=== PATIENT | female | born 1990 | race Two or more races ===

== ENCOUNTER 2024-03-20 05:58 | Emergency (ER) | payer MEDICAID, SELFPAY ==
[2024-03-20 05:59] VITALS: BMI 32.0
[2024-03-20 06:03] VITALS: BP 161/96; PULSE 84; RESP 19; TEMP 36.7; O2SAT 98
--- NOTE | 2024-03-20 06:17 | XR_ITS ---
Examination: CT middle inner ear, without contrast. 2-D coronal reconstructions. 2-D sagittal reconstructions. Date and time of exam: March 20, 2024 at 0709 hrs. Indications: Onset left urinary beginning 2 days ago CTDI: vol (mGy): 6 DLP: (mGycm):224 Technique: Multiple 1.0 mm axial sections of the middle inner ears bilaterally. High-resolution 64 slice scanner utilized. 2-D coronal reconstructions 2-D sagittal reconstructions Low dose protocols were performed. One or more of the following dose reduction techniques were used; automated exposure control, adjustment of the mA and/or KV according to patient size, use of iterative reconstruction technique. Findings: Axial sections of the right demonstrate mildly to moderately reduced mastoid aeration. Jugular fossa and carotid canal do not appear remarkable. No deformity of the ossicles. Porus acusticus internus does not exhibit erosion. Cochlear apparatus unremarkable. Semicircular canals normal. External auditory canal open. Coronal reconstructions demonstrate no erosion of the scutum. No soft tissue mass in the attic or Prussak's space is seen. Ossicular mass intact. Axial sections of the left demonstrate moderately reduced mastoid aeration. Fluid in the left mastoid air cells acute mastoiditis Jugular fossa and carotid canal do not appear remarkable. No deformity of the ossicles. Porus acusticus internus does not exhibit erosion. Cochlear apparatus unremarkable. Semicircular canals normal. Otitis externa Otitis media Coronal reconstructions demonstrate no erosion of the scutum. No soft tissue mass in the attic or Prussak's space is seen. Ossicular mass intact. Roof of the mastoid air cells appear intact bilaterally. Impression: Bilateral chronic mastoiditis Acute left mastoiditis Left otitis externa Left otitis media Negative for cholecystitis
--- NOTE | 2024-03-20 06:19 | PD.EDRME ---
Rapid Medical Screening Exam RME Arrival date/time: 03/20/24 05:58 Chief Complaint: Ear Time Seen by Provider: 03/20/24 06:12 Vital signs: Vital Signs Temperature 98.1 F 03/20/24 06:03 Pulse Rate 84 03/20/24 06:03 Respiratory Rate 19 03/20/24 06:03 Blood Pressure 161/96 H 03/20/24 06:03 Pulse Oximetry (%) 98 03/20/24 06:03 Oxygen Delivery Method Room Air 03/20/24 06:03 Vital signs reviewed by provider: Yes RME Narrative: 33 yo F presents for evaluation of worsening L ear pain x3 days. Endorses fever, chills, and otorrhea. Endorses throat pain.
[2024-03-20 06:38] LABS: Basophils % (Auto) 0 % (0-2.5); Eosinophils # (Auto) 0.2 Thou/mm3 (0.0-0.5); Eosinophils % (Auto) 2 % (0-10); Hematocrit 43.7 % (36.0-46.0); Hemoglobin 14.7 g/dL (12.0-16.0); Immature Granulocytes % (Auto) 0 % (0-0); Immature Granulocytes Auto 0.06 Thou/mm3 (0.00-0.00); Lymphocytes # (Auto) 2.3 Thou/mm3 (1.0-4.8); Lymphocytes % (Auto) 15 % (10-50); Mean Corpuscular HGB Conc 33.6 g/dl (31.0-37.0); Mean Corpuscular Hemoglobin 31.3 pg (25.0-35.0); Mean Corpuscular Volume 93 fL (80-100); Monocytes % (Auto) 7 % (0-12); Neutrophils # (Auto) 11.3 Thou/mm3 (1.8-7.7); Neutrophils % (Auto) 76 % (37-80); Nucleated Red Blood Cell % 0 /100 WBC (0); Platelet Count 244 Thou/mm3 (140-440); RDW Standard Deviation 42.4 fL (36.4-46.3); Red Blood Count 4.69 Miln/mm3 (4.00-5.20)
[2024-03-20] MEDS: KETOROLAC INJ 60 MG/2 ML VIAL 30 MG IM (06:47)
[2024-03-20 07:08] LABS: C-Reactive Protein 3.1 mg/dL (0.0-0.9)
[2024-03-20 07:29] LABS: HCG Qualitative,Urine Negative
--- NOTE | 2024-03-20 08:06 | PD.EDEAR ---
ED Ear RME/HPI General Chief complaint: Ear Stated complaint: LEFT EARACHE X 2DAYS Time Seen by Provider: 03/20/24 06:12 Arrival date/time: 03/20/24 05:58 Limitations: language barrier RME / HPI RME / HPI Narrative: 33 yo F presents for evaluation of worsening L ear pain x3 days. Endorses fever, chills, and otorrhea (clear). Endorses throat pain. Denies history of recurrent ear infections and recent antibiotic use. Denies chest pain, headache, neck pain, dental pain, night sweats. Patient works in the [employer] MD Complaint: ear pain Location: left ear Duration: constant Relieving factors: nothing Treatment prior to arrival: none Related Data Previous Rx's ?Medication ?Instructions ?Recorded amoxicillin 500 mg-potassium 1 tab PO BID ear infection 2 03/20/24 clavulanate 125 mg tablet weeks #28 tabs (Augmentin) ofloxacin 0.3 % ear drops 10 drp otic (ear) BID ear 03/20/24 infection 14 days #10 mL sulfamethoxazole 800 1 tab PO BID 2 weeks #28 tabs 03/20/24 mg-trimethoprim 160 mg tablet (Bactrim DS) Allergies Allergy/AdvReac Type Severity Reaction Status Date / Time No Known Allergies Allergy Verified 02/17/21 10:38 Review of Systems Constitutional Constitutional: Denies chills, Denies fever(s) and Denies headache(s) Eyes Eyes: Denies blurry vision and Denies change in vision ENT Ears, Nose, Mouth, and Throat: Reports as per HPI, Denies dysphagia, Denies ear discharge, Reports otalgia (Left.), Denies facial pain, Denies headache(s), Denies lip swelling, Denies neck pain, Denies sinus pain, Denies sinus pressure and Denies vertigo Cardiovascular Cardiovascular: Denies chest pain and Denies dyspnea Respiratory Respiratory: Denies cough, Denies dyspnea and Denies wheezing Gastrointestinal Gastrointestinal: Denies dysphagia, Denies nausea and Denies vomiting Musculoskeletal Musculoskeletal: Denies back pain, Denies neck pain and Denies numbness Integumentary/Breasts Skin/Breast: Denies lesions and Denies rash Neurologic Neurologic: Denies headache(s), Denies numbness, Denies radicular pain and Denies vertigo Allergic/Immunologic Allergic/Immunologic: Denies lip swelling and Denies wheezing Past Medical History Past Medical History NEUROLOGIC: Negative Neurological Disorders CARDIAC: Negative Cardiac Disorders or Congestive Heart Failure RESPIRATORY: Negative Chronic Obstructive Pulmonary Disease (COPD) GASTROINTESTINAL: Negative Gastrointestinal Disorders or Hepatitis GENITOURINARY: Negative Genitourinary Disorders or Renal Disease MUSCULOSKELETAL: Negative Musculoskeletal Disorders ENDOCRINE: 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); Negative Diabetes Mellitus Type 1 or Diabetes Mellitus Type 2 HEMATOLOGIC: Negative Blood Disorders OTHER HISTORY: Negative Autoimmune Disease, Human Immunodeficiency Virus (HIV), Chicken Pox, Measles, Mumps, Rubella ([place] Measles), Pertussis or Clostridium Difficile Family History FAMILY HISTORY: Negative Family Psychiatric Problems, Family Respiratory Disorders, Family Cardiac Disorders, Family Gastrointestinal Problems, Family Cancer, Family Surgery or Family Anesthesia Reaction Social History SMOKING STATUS: Never smoker ED Exam General Limitations: Present language barrier General appearance: Present alert and in no apparent distress Head Head exam: Present atraumatic Eye Eye exam: Present normal appearance and EOMI ENT ENT exam: Present normal oropharynx and mucous membranes moist Expanded ENT Exam External ear exam: Present mastoid tenderness, pain with movement, external tenderness and other (flesh colored, fluffy discharge left ear canal obstructing TM. ) TM/Canal exam: Left TM: erythema, loss of landmarks, canal discharge and canal tenderness Neck Neck exam: Present normal inspection and full ROM Chest Chest inspection: Present normal inspection and symmetric chest wall rise Respiratory Respiratory exam: Absent respiratory distress Cardiovascular Cardiovascular exam: Present regular rate, +S1 and +S2 Abdominal Exam Abdominal exam: Present soft; Absent distention Extremities Exam Extremities exam: Present normal inspection and full ROM Back Exam Back exam: Present normal inspection and full ROM Neurological Exam Neurological exam: Present alert and normal gait Psychiatric Psychiatric exam: Present normal affect Skin Skin exam: Present warm and dry Course Quality Measures none Orders Category Date Time Status CT ear mid-inner wo Stat Exams 03/20/24 06:17 Completed CBC [CBC] Stat Lab 03/20/24 06:26 Completed CRP [C-Reactive Protein] Stat Lab 03/20/24 06:26 Completed HCG Qualitative,Urine Stat Lab 03/20/24 06:40 Completed Amoxicillin/Pot Clav 875 [Augmentin 875] Med 03/20/24 08:04 Discontinued 1 tab PO X1 ONE Ciprofloxacin HCl [Ciprofloxacin] Med 03/20/24 08:04 Discontinued 500 mg PO X1 ONE Ketorolac Inj [Toradol Inj] Med 03/20/24 06:26 Discontinued 30 mg IM X1 ONE Vital Signs Vital signs: Vital Signs Temperature 98.1 F 03/20/24 06:03 Pulse Rate 84 03/20/24 06:03 Respiratory Rate 19 03/20/24 06:03 Blood Pressure 161/96 H 03/20/24 06:03 Pulse Oximetry (%) 98 03/20/24 06:03 Oxygen Delivery Method Room Air 03/20/24 06:03 Ear Patient data External records reviewed:: [facility] previous records Clinical information provided by:: patient Social determinants that could affect healthcare access:: none Patient has the following chronic illnesses:: None reported. How is presenting disease/condition affected by chronic disease/condition?: no chronic disease Evaluation data The following diagnostics were reviewed and interpreted by me:: lab results and radiology exam(s) Lab and/or radiology exams considered but not ordered:: Workup obtained. Interpretation Summary: CT inner ear consistent with chronic bilateral mastoiditis and acute left mastoiditis. Elevated CRP pointing toward inflammatory process. Leukocytosis on CBC. Medications / Prescriptions Medications or Prescriptions considered but not ordered:: Rx given. Medication administrations:: Medication Administration History Discontinued Medications Amoxicillin/Clavulanate Potassium (Amoxicillin/Pot Clav 875 Tablet) 1 tab PO X1 ONE Stop: 03/20/24 08:05 Last Admin: 03/20/24 08:56 Dose: 1 tab Documented By: CLIFTON Ciprofloxacin (Ciprofloxacin Hcl 250 Mg Tablet) 500 mg PO X1 ONE Stop: 03/20/24 08:05 Last Admin: 03/20/24 08:56 Dose: 500 mg Documented By: CLIFTON Ketorolac Tromethamine (Ketorolac Inj 60 Mg/2 Ml Vial) 30 mg IM X1 ONE Stop: 03/20/24 06:27 Last Admin: 03/20/24 06:47 Dose: 30 mg Documented By: SF Rx given. Consultations Consultation(s) initiated? (list below): No Diagnosis Most likely diagnosis given after review of the tests above:: Chronic bilateral mastoiditis, acute left mastoiditis, acute left otitis externa. Admission Indicated Admission indicated?: not indicated Admission Request Was there a request for admission?: No Disposition Plan Disposition Plan: Discharge Discharge Attestation Discharge Attestation: The patient and all family members were given an opportunity to ask questions and understood the discharge instructions. Discharge instructions specifically effects, indications for sooner follow up or return to the emergency department, and the expected course of current diagnosis. Patient condition: Stable Medical Decision Making MDM Narrative MDM Narrative: 33-year-old female presented with left ear pain and otorrhea. Vital signs reassuring. Physical exam significant for erythema and white otorrhea left ear, concerning for otitis externa. Given physical exam CT inner ear was obtained which showed evidence of bilateral chronic mastoiditis and acute left mastoiditis and otitis externa. CRP was elevated 3.1 today and CBC was significant for leukocytosis at 15,000. Low concern for sepsis given patient is afebrile and does not meet SIRS criteria at this time. Given patient nontoxic-appearing with reassuring vital signs she was appropriate for outpatient therapy and started on started on antibiotics with Bactrim(Cipro preferred for MRSA coverage but no under pt's insurance plan). and Augmentin and ofloxacin drops. Patient agreeable with plan for ENT referral within the next 2 to 3 days. Patient was given a dose of antibiotic prior to discharge. I stressed the patient that she needs to be seen by her primary care on Saturday and have ENT referral within the next week. Strong return precautions were provided and patient was stable at time of discharge. Patient was interviewed with eyeglass lens cutter and given the chance to ask questions. Lab Data 03/20/24 06:26 Labs: Lab Results 03/20/24 03/20/24 Range/Units 06:26 06:40 WBC 15.0 H (3.6-11.0) Thou/mm3 RBC 4.69 (4.00-5.20) Miln/mm3 Hgb 14.7 (12.0-16.0) g/dL Hct 43.7 (36.0-46.0) % MCV 93 (80-100) fL MCH 31.3 (25.0-35.0) pg MCHC 33.6 (31.0-37.0) g/dl RDW Std Deviation 42.4 (36.4-46.3) fL Plt Count 244 (140-440) Thou/mm3 Neut % (Auto) 76 (37-80) % Lymph % (Auto) 15 (10-50) % [place] % (Auto) 7 (0-12) % Eos % (Auto) 2 (0-10) % Baso % (Auto) 0 (0-2.5) % Neut # (Auto) 11.3 H (1.8-7.7) Thou/mm3 Lymph # (Auto) 2.3 (1.0-4.8) Thou/mm3 [place] # (Auto) 1.0 H (0.0-0.8) Thou/mm3 Eos # (Auto) 0.2 (0.0-0.5) Thou/mm3 Baso # (Auto) 0.0 (0.0-0.2) Thou/mm3 Immature Gran # (Auto) 0.06 H (0.00-0.00) Thou/mm3 Absolute Nucleated RBC 0.00 (0.00-0.00) Thou/mm3 Immature Gran % 0 (0-0) % Nucleated RBC % 0 (0) /100 WBC C-Reactive Prot, Quant 3.1 H (0.0-0.9) mg/dL Urine HCG, Qual Negative Discharge Plan Plan Patient Disposition: HOME (Self Care) Disposition Comment: stable Prescriptions/Referrals Prescriptions/Med Rec: New sulfamethoxazole-trimethoprim [Bactrim DS] 800-160 mg tablet 1 tab PO BID 14 Days Qty: 28 0RF amoxicillin-pot clavulanate [Augmentin] 500-125 mg tablet 1 tab PO BID 14 Days Qty: 28 0RF ofloxacin 0.3 % drops 10 drp otic (ear) BID 14 Days Qty: 10 0RF Referrals: Chris Brown MD [Primary Care Provider] - In 1 week Problem List Clinical Impression: Chronic mastoiditis of both sides, Acute mastoiditis of left side, Otitis externa of left ear Patient/Caregiver Discharge Instructions Other Activity Instructions:: Follow-up with [facility] primary care for reevaluation on Saturday or Saturday. Follow-up with ENT DrDeepti Within the next week. Take Bactrim and Augmentin twice daily for the next x 2 weeks. Apply eardrops to both ears twice daily for the next x 2 weeks. Return to the ED if your symptoms worsen or change. Education Materials: Common Middle Ear Problems, ED Acute Otitis Media with ... Print Language: Trinidadian Stand Alone Forms: Ursula Award Info., Patient Portal Info Letter PA/LIZETH Supervising Physician PA/LIZETH Supervising Physician: Dr. squires
[2024-03-20 08:26] VITALS: BP 121/81; PULSE 81; RESP 16; TEMP 36.9; O2SAT 99
[2024-03-20] MEDS: AMOXICILLIN/POT CLAV 875 TABLET 1 TAB PO (08:56)
[2024-03-20] MEDS: CIPROFLOXACIN HCL 250 MG TABLET 500 MG PO (08:56)
== END 2024-03-20 08:58 | disposition home or self-care (01) ==
PROVIDERS: Physician Assistant; Emergency Provider Emergency Medicine; PCP Family Medicine
DX: H70.13 Chronic mastoiditis, bilateral (principal); H70.002 Acute mastoiditis without complications, left ear; H60.92 Unspecified otitis externa, left ear
CPT/HCPCS: 36415; 70480; 81025; 85025; 86140; 96372; 99284; J1885; A9270